=== PATIENT | female | born 1995 | race Caucasian/White ===

== ENCOUNTER 2019-11-26 17:08 | Emergency (ER) | payer BC ==
[~2019-11-26] VITALS: Ht 172.7 cm; Wt 77.1 kg
--- NOTE | 2019-11-26 17:11 | NUR ---
Patient to ER bed 03 to gown for evaluation. Side rails up.
[2019-11-26 17:14] VITALS: BP_SYST 132
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
--- NOTE | 2019-11-26 17:22 | NUR ---
Leigh, mother of pt, called in regards to pt status. requested call if pt is discharged and or need of info or update. c: [phone]
--- NOTE | 2019-11-26 17:28 | NUR ---
ER Dr. GUY at bedside examining patient.
[2019-11-26] MEDS ORDERED: MORPHINE 4 MG/ML INJ. SYRINGE IVP ONE (18:00)
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
[2019-11-26 18:33] VITALS: BP_SYST 132
== END 2019-11-26 18:00 | disposition home or self-care (01) ==
LOC: SED 17:08
DX: S82.891A Other fracture of right lower leg, initial encounter for closed fracture (principal); Z88.6 Allergy status to analgesic agent; W18.39XA Other fall on same level, initial encounter; Y93.51 Activity, roller skating (inline) and skateboarding; Y92.89 Other specified places as the place of occurrence of the external cause; Y99.8 Other external cause status
CPT/HCPCS: 29515; 73610; 96374; 99283; J2270